=== PATIENT | male | born 1975 | race Caucasian/White ===

== ENCOUNTER 2023-09-18 13:35 | Emergency (ER) | payer MEDICAID ==
[~2023-09-18] VITALS: Ht 182.9 cm; Wt 108.9 kg
[2023-09-18 14:31] VITALS: BP_SYST 130; PULSE 71; RESP 16; TEMP 98.9; O2SAT 100
[2023-09-18] MEDS ORDERED: INSU100V11 SQ (14:48)
[2023-09-18] MEDS ORDERED: [UNRECOGNIZED DRUG - CODE] TP (14:48)
[2023-09-18] MEDS ORDERED: METF-379 PO (14:48)
[2023-09-18 15:02] VITALS: BP_SYST 130; PULSE 71; RESP 16; TEMP 98.9; O2SAT 100
== END 2023-09-18 14:57 | disposition home or self-care (01) ==
LOC: SED 13:35
DX: E11.9 Type 2 diabetes mellitus without complications (principal); Z76.0 Encounter for issue of repeat prescription; Z79.899 Other long term (current) drug therapy
CPT/HCPCS: 82948; 99281